=== PATIENT | female | born 1945 | race Caucasian/White ===

== ENCOUNTER → 2017-03-19 | Outpatient (CLI) | payer OTHER ==
[~2017-03-19] MED LIST: ASPEC325 PO; BUPRTAB51 PO; CALCTAB5 PO; CLB200 PO; FEXO1TAB46 PO; HYDR-5688 PO; LISI-787 PO; MULTTAB58 PO; OXYSR10 PO; TRIA3AER NAE
--- NOTE | 2017-03-20 07:57 | MAMMOGRAPHY REPORT ---
BILATERAL DIGITAL SCREENING MAMMOGRAM WITH CAD: 03/19/2017 CLINICAL HISTORY: Routine screening. Patient has no complaints. TECHNIQUE: Bilateral CC, repeat CC views with nipples in profile and MLO views were obtained. Curren t study was also evaluated with a Computer Aided Detection (CAD) system. COMPARISON: Comparison is made to exams dated: 03/03/2014 mammogram, 05/21/2011 mammogram, 02/06/2010 mammogram, 09/23/2003 mammogram, and 06/06/2006 mammogram - [facility]. BREAST COMPOSITION: There are scattered areas of fibroglandular density in both breasts. FINDINGS: There is a stable intramammary lymph node in the left upper outer quadrant. A few benign c oarse calcifications in the breasts. No suspicious mass, architectural distortion or cluster of susp icious microcalcifications is seen. IMPRESSION: ACR BI-RADS CATEGORY 1: NEGATIVE There is no mammographic evidence of malignancy. A 1 year screening mammogram is recommended. The pa tient will receive written notification of the results. Approximately 10% of breast cancers are not detected with mammography. A negative mammographic report should not delay biopsy if a clinically suggestive mass is present. Lizette Rene M.D. 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
== END | disposition home or self-care (01) ==
LOC: C.MAMM 09:27
PROVIDERS: ATTEND Physician Assistant
DX: Z12.31 Encounter for screening mammogram for malignant neoplasm of breast (principal)